=== PATIENT | female | born 1935 | race Caucasian/White ===

== ENCOUNTER 2021-06-07 15:41 | Emergency (ER) | payer MEDICARE, BC ==
[2021-06-07] MEDS ORDERED: Amiodarone 150 MG/3 ML SDV ONE (15:48)
[2021-06-07] MEDS ORDERED: Sodium Chloride 0.9% 10 ML Syringe FLUSH PRN (15:55)
[2021-06-07] MEDS ORDERED: Amiodarone 150 MG in Dextrose 5% in Water 100 ML IV ONE ×4 (16:08→16:51)
--- NOTE | 2021-06-07 16:15 | EDM.PDOC ---
ED HPI GENERAL MEDICAL PROBLEM - General Chief Complaint: Chest Pain Stated Complaint: shortness of breath Time Seen by Provider: 06/07/21 15:45 Source of Information: Reports: Patient, Family History Limitations: Reports: No Limitations - History of Present Illness INITIAL COMMENTS - FREE TEXT/NARRATIVE: Pt. presents to ER with complaints of chest pain, shortness of breath, and palpitations that started this AM. Pt. states that symptoms started at 6-6:30 AM. Pt. has a history of CAD, and underwent a complex angiogram with rotory plaque removal May 03. Pt. has a history of atrial fib and is anticoagulated. She is also on plavix. Pt. has a history of sick sinus syndrome. She got her first pacemaker in 2009 and the second one was approx. 2 years ago. Pt. was ambulatory into the ER. Nursing placed the patient on the threat monitoring analyst and she was found to be in vtach at 140-150 range. Onset: Today Onset Date: 06/07/21 - Related Data Allergies Allergy/AdvReac Type Severity Reaction Status Date / Time aspirin Allergy Nose Bleeds Verified 06/07/21 16:09 Home Meds: Home Meds Amiodarone HCl 200 mg PO DAILY 10/07/14 [History] Furosemide 1 tab PO 10/07/14 [History] Gabapentin 200 mg pe PO DAILY 10/07/14 [History] Gabapentin 300 mg PO TID 10/07/14 [History] Metoprolol Tartrate [Lopressor] 50 mg PO DAILY 10/07/14 [History] Multivitamin [Multi Vitamin Daily] 1 tab PO DAILY 10/07/14 [History] Quinapril HCl 30 mg PO DAILY 10/07/14 [History] Simethicone [Simethicone Gas Relief] 250 mg PO QID PRN 10/07/14 [History] Warfarin Sodium 1 tab PO DAILY 10/07/14 [History] allopurinoL [Allopurinol] 100 mg PO DAILY 10/07/14 [History] ED ROS GENERAL - Review of Systems Review Of Systems: See Below Constitutional: Reports: No Symptoms. Denies: Fever, Chills, Malaise, Fatigue HEENT: Reports: No Symptoms Respiratory: Reports: No Symptoms Cardiovascular: Reports: Chest Pain, Dyspnea on Exertion, Lightheadedness, Palpitations Endocrine: Reports: No Symptoms GI/Abdominal: Reports: No Symptoms : Reports: No Symptoms Musculoskeletal: Reports: No Symptoms Skin: Reports: No Symptoms Neurological: Reports: No Symptoms Psychiatric: Reports: No Symptoms Hematologic/Lymphatic: Reports: No Symptoms Immunologic: Reports: No Symptoms ED EXAM, GENERAL - Physical Exam Exam: See Below Exam Limited By: No Limitations General Appearance: Alert, WD/WN, No Apparent Distress Neck: Normal Inspection, Supple, Non-Tender Respiratory/Chest: No Respiratory Distress, Lungs Clear, Normal Breath Sounds, N o Accessory Muscle Use, Chest Non-Tender Cardiovascular: Normal Peripheral Pulses, Regular Rate, Rhythm, No Edema, No JVD, No Murmur, Tachycardia (ventricular tach) GI/Abdominal: Normal Bowel Sounds, Soft, Non-Tender, No Distention, No Mass (Female) Exam: Deferred Rectal (Female) Exam: Deferred Back Exam: Normal Inspection, Full Range of Motion Extremities: Normal Inspection, Normal Range of Motion, Non-Tender, No Pedal Edema, Normal Capillary Refill Neurological: Alert, Oriented, CN II-XII Intact, Normal Cognition, Normal Gait, Normal Reflexes, No Motor/Sensory Deficits Psychiatric: Normal Affect, Normal Mood #1 Interpretation Rhythm: A-Fib #2 Interpretation Rhythm: Other (vtach) Course - Orders/Labs/Meds Orders: Active Orders 24 hr Category Date Time Status EKG Documentation Completion [RC] ASDIRECTED Care 06/07/21 15:55 Ordered Peripheral IV Care [RC] . DIRECTED Care 06/07/21 15:55 Ordered Chest 1V Frontal [CR] Stat Exams 06/07/21 15:56 Ordered COMPREHENSIVE METABOLIC PN,CMP [CHEM] Stat Lab 06/07/21 15:55 Ordered CRP [C-REACTIVE PROTEIN] [CHEM] Stat Lab 06/07/21 15:55 Ordered INR,PT,PROTHROMBIN TIME [COAG] Stat Lab 06/07/21 15:55 Ordered MAGNESIUM [CHEM] Stat Lab 06/07/21 15:55 Ordered PHOSPHORUS [CHEM] Stat Lab 06/07/21 15:55 Ordered PRO B-TYPE NATRIUR PEPT,BNPPRO [CHEM] Stat Lab 06/07/21 15:55 Ordered PTT,PARTIAL THROMBOPLSTIN TIME [COAG] Stat Lab 06/07/21 15:55 Ordered TROPONIN I [CHEM] Stat Lab 06/07/21 15:55 Ordered Amiodarone 360 MG in D5W @ 33.333 MLS/HR(200ml) Med 06/07/21 16:15 Ordered Amiodarone In Dextrose,Iso-Osm [Nexterone in Dextrose 360 MG/200 ML] 360 mg in 200 ml IV ASDIRECTED Sodium Chloride 0.9% [Saline Flush] Med 06/07/21 15:55 Ordered 10 ml FLUSH ASDIRECTED PRN Peripheral IV Insertion Adult [OM.PC] Routine Oth 06/07/21 15:55 Ordered Medication Orders Amiodarone HCl/Dextrose (Nexterone In Dextrose 360 Mg/200 Ml) 360 mg in 200 mls @ 33.333 mls/hr IV ASDIRECTED CRISTAL; Protocol Last Admin: 06/07/21 16:27 Dose: 33.333 mls/hr Documented by: Sodium Chloride (Sodium Chloride 0.9% 10 Ml Syringe) 10 ml FLUSH ASDIRECTED PRN PRN Reason: Keep Vein Open Labs: Laboratory Tests 06/07/21 Range/Units 16:00 WBC 7.7 (4.0-10.2) K/uL RBC 4.20 (3.77-5.09) M/uL Hgb 14.5 (11.7-15.5) g/dL Hct 43.5 (34.0-46.0) % MCV 103.6 H (84.0-98.0) fL MCH 34.5 H (28.2-33.3) pg MCHC 33.3 (31.7-36.0) g/dL RDW 11.8 (11.2-14.1) % Plt Count 265 (150-350) K/uL Neut % (Auto) 60.1 (45.0-80.0) % Lymph % (Auto) 26.8 (10.0-50.0) % [place] % (Auto) 9.8 (2.0-14.0) % Eos % (Auto) 2.6 (0.0-5.0) % Baso % (Auto) 0.7 (0.0-2.0) % Neut # (Auto) 4.62 (1.40-7.00) K/uL Lymph # (Auto) 2.06 (0.50-3.50) K/uL [place] # (Auto) 0.75 (0.00-1.00) K/uL Eos # (Auto) 0.20 (0.00-0.50) K/uL Baso # (Auto) 0.05 (0.00-0.20) K/uL Meds: Medications Generic Name Dose Route Start Last Admin Trade Name Freq PRN Reason Stop Dose Admin Amiodarone HCl/Dextrose 360 mg in 200 mls @ 33.333 mls/hr 06/07/21 16:15 06/07/21 16:27 Nexterone In Dextrose 360 Mg/200 Ml IV 33.333 mls/hr ASDIRECTED CRISTAL Administration Protocol Sodium Chloride 10 ml 06/07/21 15:55 Sodium Chloride 0.9% 10 Ml Syringe FLUSH ASDIRECTED PRN Keep Vein Open Discontinued Medications Generic Name Dose Route Start Last Admin Trade Name Freq PRN Reason Stop Dose Admin Amiodarone HCl Confirm 06/07/21 15:48 06/07/21 16:27 Amiodarone 150 Mg/3 Ml Sdv Administered 06/07/21 15:49 150 mg Dose Administration 150 mg .ROUTE .STK-MED ONE Amiodarone HCl 150 mg/ 103 mls @ 600 mls/hr 06/07/21 16:08 Dextrose/Water IV 06/07/21 16:18 ONETIME ONE Departure - Departure Time of Disposition: 17:07 Disposition: Home, Self-Care 01 Clinical Impression: Wide-complex tachycardia - Discharge Information Referrals: Chika Maldonado PA [Primary Care Provider] - Forms: ED Department Discharge, Interfacility Transfer EMTALA - Problem List Review Problem List Initiated/Reviewed/Updated: Yes - My Orders Last 24 Hours: My Active Orders 06/07/21 15:55 EKG Documentation Completion [RC] ASDIRECTED Peripheral IV Care [RC] . DIRECTED COMPREHENSIVE METABOLIC PN,CMP [CHEM] Stat CRP [C-REACTIVE PROTEIN] [CHEM] Stat INR,PT,PROTHROMBIN TIME [COAG] Stat MAGNESIUM [CHEM] Stat PHOSPHORUS [CHEM] Stat PRO B-TYPE NATRIUR PEPT,BNPPRO [CHEM] Stat PTT,PARTIAL THROMBOPLSTIN TIME [COAG] Stat TROPONIN I [CHEM] Stat Sodium Chloride 0.9% [Saline Flush] 10 ml FLUSH ASDIRECTED PRN Peripheral IV Insertion Adult [OM.PC] Routine 06/07/21 15:56 Chest 1V Frontal [CR] Stat 06/07/21 16:15 Amiodarone 360 MG in D5W @ 33.333 MLS/HR(200ml) Amiodarone In Dextrose,Iso-Osm [Nexterone in Dextrose 360 MG/200 ML] 360 mg in 200 ml IV ASDIRECTED - Assessment/Plan Last 24 Hours: My Active Orders 06/07/21 15:55 EKG Documentation Completion [RC] ASDIRECTED Peripheral IV Care [RC] . DIRECTED COMPREHENSIVE METABOLIC PN,CMP [CHEM] Stat CRP [C-REACTIVE PROTEIN] [CHEM] Stat INR,PT,PROTHROMBIN TIME [COAG] Stat MAGNESIUM [CHEM] Stat PHOSPHORUS [CHEM] Stat PRO B-TYPE NATRIUR PEPT,BNPPRO [CHEM] Stat PTT,PARTIAL THROMBOPLSTIN TIME [COAG] Stat TROPONIN I [CHEM] Stat Sodium Chloride 0.9% [Saline Flush] 10 ml FLUSH ASDIRECTED PRN Peripheral IV Insertion Adult [OM.PC] Routine 06/07/21 15:56 Chest 1V Frontal [CR] Stat 06/07/21 16:15 Amiodarone 360 MG in D5W @ 33.333 MLS/HR(200ml) Amiodarone In Dextrose,Iso-Osm [Nexterone in Dextrose 360 MG/200 ML] 360 mg in 200 ml IV ASDIRECTED Plan: Pt. was given a total of 300mg amiodarone IV (150mg twice) rate and frequency or runs of v-tach decreased. Pt. was started on a 1mg/min maintenance infusion (360mg over 6 hours). Pt. remained hemodynamically stable during her stay in ER. Pt. will be transferred to [facility] via [facility] ground ambulance. Dr. Redman is accepting.
[2021-06-07 16:40] LABS: PTT,PARTIAL THROMBOPLSTIN TIME 29.7 SEC (24.5-32.8)
[2021-06-07] MEDS ORDERED: Amiodarone 150 MG/3 ML SDV IVPUSH ONE (16:52)
[2021-06-07] MEDS ORDERED: Sodium Chloride 0.9% 250 ML IV SCH (17:30)
== END 2021-06-07 18:00 ==
LOC: LL.ED 15:41
DX: R00.0 Tachycardia, unspecified (principal); I48.91 Unspecified atrial fibrillation; I25.10 Atherosclerotic heart disease of native coronary artery without angina pectoris; Z88.8 Allergy status to other drugs, medicaments and biological substances; Z79.01 Long term (current) use of anticoagulants; Z79.899 Other long term (current) drug therapy; Z79.02 Long term (current) use of antithrombotics/antiplatelets
CPT/HCPCS: 36415; 71045; 80053; 83735; 83880; 84100; 84484; 85025; 85610; 85730; 86140; 93005; 93010; 96365; 96366; 99283; 99285-25; J0282

== ENCOUNTER 2022-02-17 13:34 | Emergency (ER) | payer MEDICARE, BC ==
[2022-02-17] MEDS ORDERED: Ondansetron 4 MG/2 ML SDV IVPUSH ONE (14:08)
[2022-02-17] MEDS ORDERED: Lactated Ringers 1,000 ML IV ONE (14:08)
[2022-02-17] MEDS: Sodium Chloride 0.9% 10 ML Syringe FLUSH PRN ×2 (14:13→15:55)
[2022-02-17 14:48] LABS: CHLORIDE,CL 102 mmol/L (98-107); SODIUM,NA 142 mmol/L (136-145)
[2022-02-17] MEDS ORDERED: Morphine 2 MG/ML SYRINGE IVPUSH ONE (15:51)
== END 2022-02-17 17:47 ==
LOC: LL.ED 13:34
DX: S30.1XXA Contusion of abdominal wall, initial encounter (principal); I71.3 Abdominal aortic aneurysm, ruptured; K21.9 Gastro-esophageal reflux disease without esophagitis; I48.91 Unspecified atrial fibrillation; I16.0 Hypertensive urgency; I11.0 Hypertensive heart disease with heart failure; I50.9 Heart failure, unspecified; E78.00 Pure hypercholesterolemia, unspecified; Z88.8 Allergy status to other drugs, medicaments and biological substances; Z79.01 Long term (current) use of anticoagulants; Z79.02 Long term (current) use of antithrombotics/antiplatelets; Z79.899 Other long term (current) drug therapy; Z95.0 Presence of cardiac pacemaker
CPT/HCPCS: 36415; 74176; 80053; 83605; 83690; 83735; 84100; 85025; 86850; 86900; 86901; 96374; 96375; 99285; J2270; J2405; J3490; J7120; 99284

== ENCOUNTER 2022-09-26 22:21 | Emergency (ER) | payer MEDICARE, BC ==
[2022-09-26] MEDS ORDERED: Sodium Chloride 0.9% 10 ML Syringe FLUSH PRN (22:24)
[2022-09-26] MEDS: HYDROmorphone 0.5 MG/0.5 ML Syringe IVPUSH ONE ×2 (22:41→22:58)
[2022-09-26] MEDS: LORazepam 2 MG/ML SDV IVPUSH ONE (22:45)
[2022-09-26] MEDS: Sodium Chloride 0.9% 1,000 ML IV SCH (22:57)
[2022-09-27] MEDS: HYDROmorphone 0.5 MG/0.5 ML Syringe ONE (04:53)
== END 2022-09-27 02:30 | disposition home or self-care (01) ==
LOC: LL.ED 22:21
DX: S43.014A Anterior dislocation of right humerus, initial encounter (principal); I48.91 Unspecified atrial fibrillation; I11.0 Hypertensive heart disease with heart failure; I50.9 Heart failure, unspecified; E03.9 Hypothyroidism, unspecified; Z95.5 Presence of coronary angioplasty implant and graft; Z95.0 Presence of cardiac pacemaker; Z88.8 Allergy status to other drugs, medicaments and biological substances; Z79.01 Long term (current) use of anticoagulants; Z79.02 Long term (current) use of antithrombotics/antiplatelets; Z79.899 Other long term (current) drug therapy; W01.0XXA Fall on same level from slipping, tripping and stumbling without subsequent striking against object, initial encounter
CPT/HCPCS: 23650; 73030-RT; 96361; 96374; 96375; 96376; 99283-25; J1170; J2060; J7030

== ENCOUNTER 2022-10-03 07:11 | Emergency (ER) | payer MEDICARE, BC | END 2022-10-03 09:40 | disposition home or self-care (01) | LOC: LL.ED 07:11 | DX: S80.02XA Contusion of left knee, initial encounter (principal); M70.42 Prepatellar bursitis, left knee; I48.91 Unspecified atrial fibrillation; I11.0 Hypertensive heart disease with heart failure; I50.9 Heart failure, unspecified; E78.00 Pure hypercholesterolemia, unspecified; K21.9 Gastro-esophageal reflux disease without esophagitis; E03.9 Hypothyroidism, unspecified; Z95.5 Presence of coronary angioplasty implant and graft; Z88.8 Allergy status to other drugs, medicaments and biological substances; Z79.01 Long term (current) use of anticoagulants; Z79.02 Long term (current) use of antithrombotics/antiplatelets; Z79.899 Other long term (current) drug therapy; W18.30XA Fall on same level, unspecified, initial encounter; Y92.009 Unspecified place in unspecified non-institutional (private) residence as the place of occurrence of the external cause | CPT/HCPCS: 36415; 73562-LT; 85025; 85652; 86140; 99283; 99284 ==